=== PATIENT | female | born 1990 | race Caucasian/White ===

== ENCOUNTER 2017-04-24 14:03 | Emergency (ER) | payer OTHER ==
[~2017-04-24] VITALS: Ht 167.6 cm; Wt 65.8 kg
[2017-04-24 17:26] VITALS: BP 120/76
== END 2017-04-24 18:56 | disposition left against medical advice (07) ==
LOC: ER 14:03
DX: R21 Rash and other nonspecific skin eruption (principal); Z53.21 Procedure and treatment not carried out due to patient leaving prior to being seen by health care provider